=== PATIENT | male | born 1960 | race Caucasian/White ===

== ENCOUNTER 2018-10-15 07:01 | Day surgery (SDC) | payer OTHER ==
[~2018-10-15 07:01] MED LIST: EPHEDrine SULFATE 50 MG/5 ML SYG; PROPOFOL 200 MG INJ
[2018-10-15] MEDS ORDERED: MOXIFLOXACIN 0.5% 3 ML OPH (08:05)
[2018-10-15] MEDS ORDERED: PHENYLephrine 10% 5 ML OPH (08:05)
[2018-10-15] MEDS ORDERED: NEPAFENAC 0.1% 3 ML OPH (08:05)
[2018-10-15] MEDS ORDERED: CYCLOPENTOLATE 2% 2 ML OPH (08:05)
[2018-10-15 08:08] LABS: ADD MAN DIFF? NO
[2018-10-15 08:12] LABS: BASOPHILS % 0.4 % (0.0-2.0); EOSINOPHILS # 0.2 10^3/ul (0.0-0.5); EOSINOPHILS % 3.6 % (0.0-7.0); HEMOGLOBIN 13.7 g/dl (14.0-18.0); LYMPHOCYTES # 1.2 10^3/ul (0.8-2.9); LYMPHOCYTES % 22.5 % (15.0-51.0); MEAN CORPUSCULAR HEMOGLOBIN 32.3 pg (29.0-33.0); MEAN CORPUSCULAR HGB CONC 34.3 g/dl (32.0-37.0); MEAN CORPUSCULAR VOLUME 94.3 fl (82.0-101.0); MEAN PLATELET VOLUME 9.2 fl (7.4-10.4); MONOCYTE # 0.4 10^3/ul (0.3-0.9); MONOCYTES % 8.2 % (0.0-11.0); NEUTROPHIL # 3.4 10^3/ul (1.6-7.5); NEUTROPHILS % 64.9 % (39.0-77.0); PLATELET COUNT 211 10^3/UL (140-415); RED BLOOD COUNT 4.24 10^6/ul (4.70-6.10); RED CELL DISTRIBUTION WIDTH 12.5 % (11.5-14.5)
[2018-10-15 08:12] LABS: WHITE BLOOD COUNT 5.2 10^3/ul (4.8-10.8)
[2018-10-15] MEDS: CYCLOPENTOLATE 2% 2 ML OPH OPER (08:15)
[2018-10-15] MEDS: NEPAFENAC 0.1% 3 ML OPH OPER (08:15)
[2018-10-15] MEDS: MOXIFLOXACIN 0.5% 3 ML OPH OPER (08:15)
[2018-10-15] MEDS: PHENYLephrine 10% 5 ML OPH OPER (08:15)
[2018-10-15] MEDS ORDERED: TIMOLOL 0.5% 5 ML OPH (08:18)
[2018-10-15] MEDS ORDERED: LIDOCAINE 1% (MPF) 10 ML INJ (08:18)
[2018-10-15] MEDS ORDERED: EPINEPHrine 1 MG INJ (08:18)
[2018-10-15] MEDS ORDERED: LIDOCAINE 2% (SDV) 5 ML INJ (08:18)
[2018-10-15] MEDS ORDERED: BUPIVACAINE 0.75% (MPF) 10 ML INJ ×2 (08:19→09:00)
[2018-10-15 08:31] LABS: INR 0.91; PROTIME 12.3 Sec (11.9-14.9)
[2018-10-15 08:32] LABS: PARTIAL THROMBOPLASTIN TIME 31.8 Sec (23.0-35.0)
[2018-10-15 08:38] LABS: ALANINE AMINOTRANSFERASE 25 IU/L (13-69); ALBUMIN 4.5 g/dl (3.3-4.9); ALKALINE PHOSPHATASE 82 IU/L (42-121); ANION GAP 9 (5-13); ASPARTATE AMINO TRANSFERASE 31 IU/L (15-46); BILIRUBIN,INDIRECT 0.7 mg/dl (0-1.1); BILIRUBIN,TOTAL 0.7 mg/dl (0.2-1.3); BLOOD UREA NITROGEN 11 mg/dl (7-20); CALCIUM 9.3 mg/dl (8.4-10.2); CARBON DIOXIDE 28 mmol/L (21-31); CHLORIDE 103 mmol/L (97-110); CREATININE 0.67 mg/dl (0.61-1.24); Estimated GFR > 60 mL/min (>60); GLUCOSE 130 mg/dl (70-220); POTASSIUM 4.2 mmol/L (3.5-5.1); SODIUM 140 mmol/L (135-144); TOTAL PROTEIN 7.7 g/dl (6.1-8.1)
[2018-10-15] MEDS ORDERED: SODIUM BICARBONATE (IV ADD) 50 ML (09:01)
[2018-10-15] MEDS ORDERED: PROPOFOL 20 ML (09:17)
[2018-10-15] MEDS ORDERED: MIDAZOLAM 1 MG/ML 2 ML INJ (09:17)
[2018-10-15] MEDS: LIDOCAINE 1% (MPF) 10 ML INJ INJ (09:20)
[2018-10-15] MEDS ORDERED: FENTAnyl 50 MCG/ML VIAL IV (09:30)
[2018-10-15] MEDS ORDERED: ALBUTEROL 0.083% (NEB) 2.5 MG/3 ML AMP HHN (09:30)
[2018-10-15] MEDS ORDERED: ACETAMINOPHEN 325 MG TAB PO (09:30)
[2018-10-15] MEDS ORDERED: DIPHENHYDRAMINE 50 MG INJ IV (09:30)
[2018-10-15] MEDS ORDERED: LABETALOL HCL 20MG INJ IV (09:30)
[2018-10-15] MEDS ORDERED: hydrALAzine 20 MG INJ IV (09:30)
[2018-10-15] MEDS ORDERED: ACETAMINOPHEN 500 MG TAB PO (09:30)
[2018-10-15] MEDS ORDERED: OXYCODONE/ACETAMINOPHEN (5/325) TAB PO (09:30)
[2018-10-15] MEDS ORDERED: ONDANSETRON 4 MG INJ IV (09:30)
[2018-10-15] MEDS: TIMOLOL 0.5% 5 ML OPH LEFT EYE (10:03)
[2018-10-15] MEDS: CARBACHOL 0.01% 1.5 ML OPH INJ LEFT EYE (10:03)
[2018-10-15] MEDS ORDERED: FENTAnyl 50 MCG/ML VIAL (10:06)
[2018-10-15] MEDS ORDERED: CARBACHOL 0.01% 1.5 ML OPH INJ (10:13)
== END 2018-10-15 12:12 | disposition home or self-care (01) ==
LOC: SDS 07:01
DX: H26.8 Other specified cataract (principal); E11.9 Type 2 diabetes mellitus without complications; I10 Essential (primary) hypertension; E78.5 Hyperlipidemia, unspecified
CPT/HCPCS: 66984; 71045; 80053; 82962; 85025; 85610; 85730; 93005